=== PATIENT | male | born 1950 | race Caucasian/White ===

== ENCOUNTER 2019-12-25 14:31 | Emergency (ER) | payer MEDICARE ==
[~2019-12-25] VITALS: Ht 170.2 cm; Wt 65.0 kg
[~2019-12-25 14:31] MED LIST: HYDR12.517 PO; LORA-446 PO; METH10TA2 PO; METH40TA3 PO
[2019-12-25 15:01] VITALS: BP 163/113
[2019-12-25] MEDS ORDERED: PERMETHRIN CRM 5%, 60GM ONE (15:46)
[2019-12-25] MEDS ORDERED: PERMETHRIN CRM 5%, 60GM TP SCH (16:00)
== END 2019-12-25 16:25 | disposition home or self-care (01) ==
LOC: ED 16:22
DX: B86 Scabies (principal); G89.29 Other chronic pain; E78.00 Pure hypercholesterolemia, unspecified; I10 Essential (primary) hypertension; Z90.49 Acquired absence of other specified parts of digestive tract
CPT/HCPCS: 99283

== ENCOUNTER 2020-01-26 12:25 | Emergency (ER) | payer MEDICARE ==
[~2020-01-26] VITALS: Ht 172.7 cm; Wt 78.0 kg
[2020-01-26 12:37] VITALS: BP 203/127
--- NOTE | 2020-01-26 13:15 | NUR ---
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 PT GIVEN D/C INSTRUCTIONS, VERBALIZED UNDERSTANDING. PT HAS ALL OWN BELONGINGS UPON D/C.
== END 2020-01-26 13:26 | disposition home or self-care (01) ==
LOC: ED 12:45
DX: B86 Scabies (principal); G89.29 Other chronic pain; E78.00 Pure hypercholesterolemia, unspecified; I10 Essential (primary) hypertension
CPT/HCPCS: 99283

== ENCOUNTER 2020-04-03 11:30 | Emergency (ER) | payer MEDICARE ==
[~2020-04-03] VITALS: Ht 170.2 cm; Wt 78.3 kg
[2020-04-03 11:32] VITALS: BP 160/127
[2020-04-03 12:53] LABS: AMPHETAMINE SCREEN, URINE Negative (Negative); BARBITURATE SCREEN, URINE Negative (Negative); BENZODIAZEPINE SCREEN, URINE Negative (Negative); CANNABINOID SCREEN, URINE Negative (Negative); COCAINE SCREEN, URINE Negative (Negative); METHADONE SCREEN, URINE Positive (Negative); OPIATE SCREEN, URINE Negative (Negative)
== END 2020-04-03 13:19 | disposition home or self-care (01) ==
LOC: ED 13:13
DX: L03.011 Cellulitis of right finger (principal); G89.29 Other chronic pain; I10 Essential (primary) hypertension; X58.XXXA Exposure to other specified factors, initial encounter; Y93.89 Activity, other specified; Y92.488 Other paved roadways as the place of occurrence of the external cause; Y99.8 Other external cause status
CPT/HCPCS: 36415; 80307; 86705; 86706; 86803; 87340; 87521; 87806; 99283; G0475